=== PATIENT | female | born 1930 | race Caucasian/White ===

== ENCOUNTER 2021-01-06 16:47 | Emergency (ER) | payer OTHER, MEDICAID ==
[~2021-01-06] VITALS: Ht 144.8 cm; Wt 54.4 kg
[2021-01-06 16:47] VITALS: BP_SYST 146
[~2021-01-06 16:47] MED LIST: ASPI-1457 PO; ISOS60TA71 PO; LEVO75TA7 PO; LOSA100T3 PO; METO25TA6 PO; NITR4.1S2 SL; SIMV-43 PO
[2021-01-06 18:26] LABS: BASOPHILS % (AUTO) 0.7 % (0.0-2.0); EOSINOPHILS # (AUTO) 0.1 K/uL (0.0-0.4); EOSINOPHILS % (AUTO) 1.6 % (0.0-4.0); HEMATOCRIT 28.8 % (36-48); HEMOGLOBIN 10.2 g/dL (12.0-16.0); LYMPHOCYTES # (AUTO) 2.5 K/uL (1.0-5.5); LYMPHOCYTES % (AUTO) 38.4 % (20.5-51.5); MEAN CORPUSCULAR HEMOGLOBIN 33 pg (27-31); MEAN CORPUSCULAR HGB CONC 36 % (32-36); MEAN CORPUSCULAR VOLUME 91 fL (79.0-98.0); MONOCYTES # (AUTO) 0.7 K/uL (0.0-1.0); MONOCYTES % (AUTO) 11.2 % (1.7-9.3); NEUTROPHILS # (AUTO) 3.2 K/uL (1.8-7.7); NEUTROPHILS % (AUTO) 48.1 % (40.0-70.0); PLATELET COUNT (AUTO) 217 K/uL (130-430); RED BLOOD CELL COUNT(AUTO) 3.15 MIL/uL (4.2-6.2); WHITE BLOOD COUNT (AUTO) 6.6 K/uL (4.8-10.8)
[2021-01-06 18:37] LABS: ANION GAP 12 (5-15); CALCIUM 8.3 mg/dL (8.4-11.0); CHLORIDE 96 mmol/L (98-107); CREATININE 1.65 mg/dL (0.55-1.30); GLUCOSE 111 mg/dL (70-99); POTASSIUM 5.1 mmol/L (3.5-5.1); SODIUM SERUM 130 mmol/L (136-145); UREA NITROGEN, BLOOD 25 mg/dL (8-21)
[2021-01-06 18:40] LABS: PROTHROMBIN TIME 10.3 SECS (9.5-12.5)
[2021-01-06 18:42] LABS: ALANINE AMINOTRANSFERASE 24 U/L (12-78); ALBUMIN 3.3 g/dL (3.4-4.8); ASPARTATE AMINOTRANSFERASE 26 U/L (10-37); TOTAL BILIRUBIN 0.7 mg/dL (0.0-1.0)
[2021-01-06] MEDS ORDERED: GABA-529 PO (19:03)
[2021-01-06 20:11] VITALS: BP_SYST 148
== END 2021-01-06 20:11 | disposition home or self-care (01) ==
LOC: SED 16:47
DX: G62.9 Polyneuropathy, unspecified (principal); Z88.8 Allergy status to other drugs, medicaments and biological substances; Z79.899 Other long term (current) drug therapy
CPT/HCPCS: 36415; 70450-TC; 71045; 76376; 80053; 84484; 85025; 85610-TC; 85730-TC; 93005; 99285

== ENCOUNTER 2021-01-25 14:15 | Inpatient (IN) | payer OTHER, MEDICAID, SELFPAY ==
[~2021-01-25] VITALS: Ht 167.6 cm; Wt 47.7 kg
[~2021-01-25 14:15] MED LIST changes: +GABA-529 PO
--- NOTE | 2021-01-25 14:18 | NUR ---
Patient to ER bed 3 to gown for evaluation. Side rails up. Report given to NERISSA DICKEY.
[2021-01-25 14:19] VITALS: BP_SYST 157
--- NOTE | 2021-01-25 14:19 | NUR ---
DR. HENDERSON AT BEDSIDE TO ASSESS.
--- NOTE | 2021-01-25 14:20 | NUR ---
Pt came into ER with complaint of left lower abdominal pain XToday 03/08. Pt AAOX4 speaking full sentences. Pt presenting with guarding to the site of pain.
[2021-01-25] MEDS ORDERED: NACL 0.9% 1,000 ML IV ONE (14:30)
[2021-01-25] MEDS ORDERED: MORPHINE 4 MG INJ. 4 MG/ML VIAL IVP ONE (14:30)
[2021-01-25] MEDS ORDERED: DIPHENHYDRAMINE INJ 50 MG/ML VIAL IVP ONE (14:30)
[2021-01-25] MEDS ORDERED: ONDANSETRON HCL 4 MG/2 ML VIAL IVP ONE (14:30)
--- NOTE | 2021-01-25 14:30 | NUR ---
# 20 gauge angiocath placed to RAC. Use of asceptic technique. Opsite placed over site. Blood return noted. Blood for lab drawn from site. Flushed with 10 cc of normal saline. No evidence of infiltration noted. Patient tolerated well.
[2021-01-25 14:53] LABS: BASOPHILS % (AUTO) 0.4 % (0.0-2.0); EOSINOPHILS % (AUTO) 0.4 % (0.0-4.0); HEMATOCRIT 36.3 % (36-48); HEMOGLOBIN 12.4 g/dL (12.0-16.0); LYMPHOCYTES # (AUTO) 3.8 K/uL (1.0-5.5); LYMPHOCYTES % (AUTO) 36.3 % (20.5-51.5); MEAN CORPUSCULAR HEMOGLOBIN 31 pg (27-31); MEAN CORPUSCULAR HGB CONC 34 % (32-36); MEAN CORPUSCULAR VOLUME 91 fL (79.0-98.0); MONOCYTES # (AUTO) 0.8 K/uL (0.0-1.0); MONOCYTES % (AUTO) 8.1 % (1.7-9.3); NEUTROPHILS # (AUTO) 5.7 K/uL (1.8-7.7); NEUTROPHILS % (AUTO) 54.8 % (40.0-70.0); PLATELET COUNT (AUTO) 263 K/uL (130-430); RED BLOOD CELL COUNT(AUTO) 3.99 MIL/uL (4.2-6.2); RED CELL DISTRIBUTION WIDTH 13.2 % (9.0-15.0); WHITE BLOOD COUNT (AUTO) 10.3 K/uL (4.8-10.8)
--- NOTE | 2021-01-25 14:58 | NUR ---
X-ray at bedside.
--- NOTE | 2021-01-25 15:00 | NUR ---
In/Out catheter inserted for urine sample. Pt tolerated well. Specimen sent to lab for analysis.
[2021-01-25 15:05] LABS: ANION GAP 14 (5-15); CALCIUM 9.2 mg/dL (8.4-11.0); CHLORIDE 92 mmol/L (98-107); CREATININE 1.49 mg/dL (0.55-1.30); GLUCOSE 121 mg/dL (70-99); POTASSIUM 4.4 mmol/L (3.5-5.1); SODIUM SERUM 127 mmol/L (136-145); UREA NITROGEN, BLOOD 28 mg/dL (8-21)
[2021-01-25 15:06] LABS: BILIRUBIN,URINE NEGATIVE (NEGATIVE); BLOOD, URINE 1+ (NEGATIVE); CLARITY/URINE SL CLOUDY (CLEAR); COLOR,URINE YELLOW (YELLOW); GLUCOSE,URINE NEGATIVE (NEGATIVE); KETONES,URINE NEGATIVE (NEGATIVE); LEUKOCYTE ESTERASE ,URINE 3+ (NEGATIVE); NITRITE, URINE NEGATIVE (NEGATIVE); PROTEIN URINE 3+ (NEGATIVE); UROBILINOGEN,URINE 0.2 (0.2-1.0)
[2021-01-25 15:07] LABS: PROTHROMBIN TIME 10.5 SECS (9.5-12.5)
[2021-01-25 15:20] LABS: ALANINE AMINOTRANSFERASE 25 U/L (12-78); ASPARTATE AMINOTRANSFERASE 36 U/L (10-37); LIPASE 190 U/L (73-393); TOTAL BILIRUBIN 0.8 mg/dL (0.0-1.0)
[2021-01-25 15:26] LABS: BACTERIA,URINE MANY /HPF (None Seen)
--- NOTE | 2021-01-25 15:26 | NUR ---
Assisted pt to bedside comode. Pt tolerated well. Family (daughter) at bedside.
[2021-01-25 15:27] LABS: WBC,URINE 50-80 /HPF (0-3)
--- NOTE | 2021-01-25 15:27 | NUR ---
Pt produced moderate amount of clear yellow urine and small amount of soft formed stool.
[2021-01-25] MEDS ORDERED: AMLO5TAB4 PO (15:41)
[2021-01-25] MEDS ORDERED: PENT400T17 PO (15:42)
--- NOTE | 2021-01-25 15:42 | NUR ---
Patient transported to radiology via gurney, accompanied by jon.
--- NOTE | 2021-01-25 15:42 | NUR ---
Medication reconciliation completed with information provided by Ricardo DICKEY. Any prior medication reconciliation on file was reviewed and corrected.
--- NOTE | 2021-01-25 15:50 | NUR ---
Back from CT reattached to monitor.
--- NOTE | 2021-01-25 16:30 | NUR ---
PT RESTING QUIETLY IN NO DISTRESS AWAITING DISPOSITION.
--- NOTE | 2021-01-25 17:45 | NUR ---
PT AWAITING UPDATE. PT RESTING QUIETLY AND DENIES ANY PAIN CURRENTLY.
--- NOTE | 2021-01-25 18:39 | NUR ---
DR. HENDERSON AT BEDSIDE TO RE-EVALUATE.
[2021-01-25] MEDS ORDERED: cefTRIAXone 1 GM IVPB PREMIX 50 ML IV ONE (18:45)
--- NOTE | 2021-01-25 18:56 | NUR ---
LAB AT BEDSIDE TO DRAW BLOOD.
--- NOTE | 2021-01-25 19:00 | NUR ---
Code status updated and reviewed with patient as full code.
--- NOTE | 2021-01-25 19:19 | NUR ---
ADMISSION ORDERS RECEIVED FROM DR. KWAN FOR M/S OBS. UNIT CALLED FOR BED ASSIGNMENT.
--- NOTE | 2021-01-25 19:20 | NUR ---
RAPID COVID SWAB OBTAINED AND SENT TO LAB FOR ANALYSIS.
--- NOTE | 2021-01-25 19:30 | NUR ---
Michelles reviewed and updated with ptRakel
--- NOTE | 2021-01-25 19:52 | NUR ---
Assisted pt to bedside comode. Pt tolerated well.
--- NOTE | 2021-01-25 20:34 | NUR ---
Called for a bed.Charge unavailable. Was told they will call back. Waiting for bed assignment.
--- NOTE | 2021-01-25 20:56 | NUR ---
Called for a bed assignment. Charge unavailable. Was told to wait for a callback. Waiting for bed assignment.
--- NOTE | 2021-01-25 21:04 | NUR ---
4TH CALL TO [facility] CHARGE FOR BED PLACEMENT. CALLED AND SPOKE TO NOBLE GALLAGHER. INFORMATION GIVEN. ELLIOTT WILL CALL BACK WITH BED PLACEMENT.
--- NOTE | 2021-01-25 21:24 | NUR ---
Patient will be admitted to care of Dr. Lynne. Admitted to Medsurg unit. Will go to room 121C. Belongings list completed. Complete and up to date summary report printed. SBAR report to be given at bedside with opportunity for questions.
--- NOTE | 2021-01-25 21:28 | NUR ---
Called Daughter Colby and updated her on room number of her mother 121C.
--- NOTE | 2021-01-25 22:13 | NUR ---
ADMISSION: The patient, NANCI ALMENDAREZ, 89 y/o, F admitted by DR ANIYA TREVIZO, was given written information regarding hospital policies, unit procedures and contact persons PROCEDURES EXPLAINED spoke with family , update given SAFETY measures implemented fall precautions , call zamarripa system use of teaching Patient verbalize understanding . .
[2021-01-25] MEDS ORDERED: ACETAMINOPHEN 325 MG TABLET PO PRN (22:45)
[2021-01-25] MEDS ORDERED: ALBUTEROL SULFATE 0.083% 2.5 MG/3 ML VIAL.NEB INH PRN (22:45)
--- NOTE | 2021-01-25 22:52 | NUR ---
CONSULT: CONSULT CALLED FOR DR. RINCON I SPOKE WITH YULISA CARTER REASON FOR CONSULT: ABDOMINAL PAIN REQUESTING CONSULT: DR. ANTOINE RISK MODELER PHONE NUMBER: [phone]
[2021-01-25 22:56] VITALS: BP_SYST 134; BP_SYST 145
[2021-01-25] MEDS: PANTOPRAZOLE SODIUM 40 MG/VIAL (PROTONIX) IVP SCH (23:39)
[2021-01-25] MEDS ORDERED: PANTOPRAZOLE SODIUM 40 MG/VIAL (PROTONIX) ONE (23:41)
--- NOTE | 2021-01-25 23:49 | NUR ---
PROTONIX 40 MG IVP administer for ABDOMINAL PAIN & helpful as ordered per DR ANIYA TREVIZO New orders .
--- NOTE | 2021-01-25 23:51 | NUR ---
ASSIST Patient out of bed AMBULATES TO Rest Room back to bed FALL RISK is noted call zamarripa given to patient , monitor .
[2021-01-26 02:00] VITALS: BP_SYST 144
--- NOTE | 2021-01-26 03:04 | NUR ---
Hourly Rounding patient Resting is verbally Responsive call zamarripa given to patient assist encourage position change no SOB activity tolerated .
--- NOTE | 2021-01-26 04:52 | NUR ---
Patient Resting is verbally Responsive HOB elevated Sips of Water & Jello po given & tolerated .
[2021-01-26] MEDS: NORMAL SALINE 5 ML DISP.SYRIN IVF SCH ×3 (05:01→22:04)
[2021-01-26 06:24] LABS: BASOPHILS # (AUTO) 0.1 K/uL (0.0-0.2); BASOPHILS % (AUTO) 1.1 % (0.0-2.0); EOSINOPHILS # (AUTO) 0.2 K/uL (0.0-0.4); EOSINOPHILS % (AUTO) 2.4 % (0.0-4.0); HEMOGLOBIN 10.5 g/dL (12.0-16.0); LYMPHOCYTES % (AUTO) 28.3 % (20.5-51.5); MEAN CORPUSCULAR HEMOGLOBIN 31 pg (27-31); MEAN CORPUSCULAR HGB CONC 34 % (32-36); MEAN CORPUSCULAR VOLUME 92 fL (79.0-98.0); MONOCYTES # (AUTO) 0.9 K/uL (0.0-1.0); MONOCYTES % (AUTO) 12.4 % (1.7-9.3); NEUTROPHILS # (AUTO) 3.9 K/uL (1.8-7.7); NEUTROPHILS % (AUTO) 55.8 % (40.0-70.0); PLATELET COUNT (AUTO) 228 K/uL (130-430); RED BLOOD CELL COUNT(AUTO) 3.36 MIL/uL (4.2-6.2); RED CELL DISTRIBUTION WIDTH 12.8 % (9.0-15.0)
[2021-01-26 06:57] LABS: ALANINE AMINOTRANSFERASE 21 U/L (12-78); ANION GAP 8 (5-15); ASPARTATE AMINOTRANSFERASE 30 U/L (10-37); CALCIUM 8.4 mg/dL (8.4-11.0); CHLORIDE 100 mmol/L (98-107); CREATININE 1.29 mg/dL (0.55-1.30); GLUCOSE 95 mg/dL (70-99); POTASSIUM 4.7 mmol/L (3.5-5.1); SODIUM SERUM 134 mmol/L (136-145); TOTAL BILIRUBIN 0.4 mg/dL (0.0-1.0); UREA NITROGEN, BLOOD 21 mg/dL (8-21)
--- NOTE | 2021-01-26 07:45 | NUR ---
ASSUMPTION OF CARE: RECEIVED PT A/A/OX3, NICARAGUAN SPEAKING WITH SOME CITIZEN OF [place] UNDERSTANDING, DX:ALTERATION IN COMFORT, R/T ABD PAIN, VSS, AFEBRILE, C/O MILD TO MODERATE PAIN TO ABDOMEN, 3-4/10 VIA NUMERIC SCALE, BREATH SOUNDS ARE CLEAR, BREATHING UNLABORED, IV SITE INTACT, PATENT, NO REDNESS OR SWELLING, ORIENTED TO UNIT, CALL LIGHT PLACED WITHIN REACH, ROOM CLOSE TO NURSES STATION, WILL CONT' TO MONITOR AND ASSESS.
[2021-01-26 08:00] VITALS: BP_SYST 154
[2021-01-26] MEDS: LEVOTHYROXINE SODIUM 0.075 MG TABLET PO SCH (09:29)
[2021-01-26] MEDS: PANTOPRAZOLE SODIUM 40 MG/VIAL (PROTONIX) IVP SCH ×2 (09:29→22:04)
[2021-01-26] MEDS: PENTOXIFYLLINE 400 MG TABLET.SA (TRENtal) PO SCH (09:29)
[2021-01-26] MEDS: SIMVASTATIN 20 MG TABLET PO SCH (09:30)
[2021-01-26] MEDS: amLODIPine BESYLATE 5 MG TABLET PO SCH (09:30)
--- NOTE | 2021-01-26 09:30 | NUR ---
SUPERVISOR OF INSTRUCTION: MORNING MEDS GIVEN, PER ORDERED BY Ciera, TOLERATED WELL, WILL CONT' TO MONITOR AND ASSESS.
--- NOTE | 2021-01-26 11:00 | NUR ---
VISIT: AT BEDSIDE FOR ASSESSMENT OF PT, DISCUSSED POC, NEW ORDERS GIVEN, WILL CONT' WITH POC.
--- NOTE | 2021-01-26 11:45 | NUR ---
VISIT: AT BEDSIDE FOR ASSESSMENT OF PT, GRANDDAUGHTER AT BEDSIDE, DISCUSSED POC, REFUSING EGD PROCEDURE, THAT IS SCHEDULED FOR TOMORROW, AT THIS TIME. NO CURRENT C/O PAIN OR DISCOMFORT, WILL CONT' TO MONITOR AND ASSESS.
[2021-01-26 12:22] VITALS: BP_SYST 137
--- NOTE | 2021-01-26 12:50 | NUR ---
CONSULT: REQUEST FOR ID CONSULT WITH , CALLED AND LEFT MESSAGE WITH EXCHANGE, SPOKE WITH RENETTA.
--- NOTE | 2021-01-26 13:56 | NUR ---
CONSULT ID UTI DR MARCANO [phone] S/W SOFIYA EXCHANGE
[2021-01-26] MEDS ORDERED: SODIUM PHOSPHATE,MONO-DIBASIC 133 ML ENEMA RC ONE (15:45)
[2021-01-26 16:38] VITALS: BP_SYST 130
[2021-01-26 20:00] VITALS: BP_SYST 143
[2021-01-26] MEDS: DOCUSATE SODIUM 100 MG CAPSULE PO SCH (22:04)
[2021-01-27] VITALS: BP_SYST 139
[2021-01-27 06:28] LABS: BASOPHILS # (AUTO) 0.1 K/uL (0.0-0.2); BASOPHILS % (AUTO) 0.7 % (0.0-2.0); EOSINOPHILS # (AUTO) 0.1 K/uL (0.0-0.4); EOSINOPHILS % (AUTO) 1.8 % (0.0-4.0); HEMATOCRIT 33.5 % (36-48); HEMOGLOBIN 11.4 g/dL (12.0-16.0); LYMPHOCYTES # (AUTO) 2.9 K/uL (1.0-5.5); LYMPHOCYTES % (AUTO) 35.8 % (20.5-51.5); MEAN CORPUSCULAR HEMOGLOBIN 31 pg (27-31); MEAN CORPUSCULAR HGB CONC 34 % (32-36); MEAN CORPUSCULAR VOLUME 92 fL (79.0-98.0); MONOCYTES # (AUTO) 0.8 K/uL (0.0-1.0); MONOCYTES % (AUTO) 9.7 % (1.7-9.3); NEUTROPHILS # (AUTO) 4.2 K/uL (1.8-7.7); PLATELET COUNT (AUTO) 245 K/uL (130-430); RED BLOOD CELL COUNT(AUTO) 3.66 MIL/uL (4.2-6.2); RED CELL DISTRIBUTION WIDTH 12.9 % (9.0-15.0)
[2021-01-27] MEDS: LEVOTHYROXINE SODIUM 0.075 MG TABLET PO SCH (06:32)
[2021-01-27] MEDS: NORMAL SALINE 5 ML DISP.SYRIN IVF SCH (06:32)
[2021-01-27 06:52] LABS: ANION GAP 12 (5-15); CALCIUM 8.6 mg/dL (8.4-11.0); CHLORIDE 99 mmol/L (98-107); CREATININE 1.21 mg/dL (0.55-1.30); GLUCOSE 95 mg/dL (70-99); POTASSIUM 4.3 mmol/L (3.5-5.1); SODIUM SERUM 133 mmol/L (136-145); UREA NITROGEN, BLOOD 20 mg/dL (8-21)
[2021-01-27] MEDS ORDERED: MEPERIDINE 100 MG INJ. 100 MG/ML VIAL ONE (07:14)
[2021-01-27] MEDS ORDERED: BENZOCAINE 20% 0.5mL UD SPRAY MM ONE (07:14)
[2021-01-27] MEDS ORDERED: MIDAZOLAM HCL 5 MG/5 ML VIAL ONE (07:14)
--- NOTE | 2021-01-27 07:15 | NUR ---
OPENING NOTE RECEIVED SBAR FROM NIGHT RN, PATIENT IN BED, RESPIRATIONS EVEN, NON LABORED, BED IN LOW AND LOCKED POSITION CALL LIGHT WITHIN REACH
[2021-01-27 07:53] LABS: C-REACTIVE PROTEIN QUANT < 0.2 mg/dL (0-0.5)
[2021-01-27 08:00] VITALS: BP_SYST 150
[2021-01-27] MEDS ORDERED: POLYETHYLENE GLYCOL 3350, 17 GM/ POWD.PACK PO SCH (09:00)
--- NOTE | 2021-01-27 09:00 | NUR ---
MD ROUNDS DR ALFONSO BEDSIDE EXAMINING PATIENT
[2021-01-27] MEDS: PENTOXIFYLLINE 400 MG TABLET.SA (TRENtal) PO SCH (09:19)
[2021-01-27] MEDS: PANTOPRAZOLE SODIUM 40 MG/VIAL (PROTONIX) IVP SCH (09:19)
[2021-01-27] MEDS: SIMVASTATIN 20 MG TABLET PO SCH (09:20)
[2021-01-27] MEDS: DOCUSATE SODIUM 100 MG CAPSULE PO SCH (09:20)
[2021-01-27] MEDS: amLODIPine BESYLATE 5 MG TABLET PO SCH (09:21)
--- NOTE | 2021-01-27 09:41 | NUR ---
Nutrition Update Martin Scale 16 noted. Pt admitted for abd pain. Diet: full liquid BMI: 17 kg/m2 RD to follow per nutrition care standards.
[2021-01-27 10:28] LABS: ERYTHROCYTE SEDIMENTATION RATE 19 MM/HR (0-20)
[2021-01-27] MEDS ORDERED: PRO40 PO (11:18)
--- NOTE | 2021-01-27 12:01 | NUR ---
NURSE NOTE SPOKE WITH DR SULMA DÍAZ FOR DISCHARGE
[2021-01-27 12:15] VITALS: BP_SYST 140
[2021-01-27 12:41] VITALS: BP_SYST 130
[2021-01-27] MEDS ORDERED: metroNIDAZOLE 250 mg/NS 50 ML IV SCH (14:00)
== END 2021-01-27 12:50 | disposition home or self-care (01) | DRG 690 ==
LOC: SED 14:15 → UNDOADMOB 19:17 → SMU 19:17 → INTOOBSV 01-27 10:20 → OBSVTOIN 01-27 10:20 → UNDODISIN 01-27 12:50
PROVIDERS: ADMIT Internal Medicine Hospice and Palliative Medicine; ATTEND Internal Medicine Hospice and Palliative Medicine
DX: N12 Tubulo-interstitial nephritis, not specified as acute or chronic (principal); K55.9 Vascular disorder of intestine, unspecified; E87.1 Hypo-osmolality and hyponatremia; K59.00 Constipation, unspecified; I10 Essential (primary) hypertension; D64.9 Anemia, unspecified; I25.10 Atherosclerotic heart disease of native coronary artery without angina pectoris; E78.5 Hyperlipidemia, unspecified; E88.09 Other disorders of plasma-protein metabolism, not elsewhere classified; K29.70 Gastritis, unspecified, without bleeding; Z20.822 Contact with and (suspected) exposure to COVID-19; E03.9 Hypothyroidism, unspecified; Z90.710 Acquired absence of both cervix and uterus; Z90.49 Acquired absence of other specified parts of digestive tract; Z79.899 Other long term (current) drug therapy; Z88.8 Allergy status to other drugs, medicaments and biological substances; N18.30 Chronic kidney disease, stage 3 unspecified; N39.0 Urinary tract infection, site not specified
CPT/HCPCS: 36415; 71045; 76376; 80048; 80053; 81000; 83605; 83690; 84484; 85025; 85610-TC; 85651-TC; 85730-TC; 86140; 87040-TC; 87086; 93005; 96361; 96365; 96375; 99285; C9113; G0378; J0696; J1200; J2175; J2250; J2270; J2405; J3490; J7060